=== PATIENT | female | born 1965 | race Caucasian/White ===

== ENCOUNTER 2020-10-13 08:59 | Outpatient (REF) | payer OTHER, SELFPAY ==
[2020-10-13 10:16] LABS: MANUAL DIFF FLAG NO
[2020-10-13 10:21] LABS: Basophils Percent Auto 0.4 % (0-2); Eosinophils Absolute Auto 0.1 X10*3/uL (0.0-0.4); Eosinophils Percent Auto 1.9 % (0-4); Hematocrit 34.1 % (37-47); Hemoglobin 11.1 g/dl (12.0-16.0); Imm Gran Abs Auto 0.02 X10*3/uL (0.00-0.03); Imm Gran Pct Auto 0.4 % (0.0-0.4); Lymphocytes Absolute Auto 2.6 X10*3/uL (1.2-4.9); Lymphocytes Percent Auto 46.2 % (20-40); Mean Corpuscular HGB Conc 32.6 g/dl (31.0-35.0); Mean Corpuscular Hemoglobin 31.4 pg (27.0-33.0); Mean Corpuscular Volume 96.3 fL (80-98); Mean Platelet Volume 9.8 fL (9.4-12.3); Monocytes Absolute Auto 0.5 X10*3/uL (0.1-1.2); Neutrophils Absolute Auto 2.4 X10*3/uL (2.0-8.3); Neutrophils Percent Auto 42.1 % (45-73); Platelet Count 298 X10*3/uL (160-400); Red Blood Count 3.54 X10*6/uL (4.20-5.50); Red Cell Distribution Width 11.7 % (11.0-16.0); White Blood Count 5.7 X10*3/uL (4.8-10.8)
[2020-10-13 10:47] LABS: Alanine Aminotransferase 30 U/L (0-31); Albumin Level 4.2 g/dL (3.5-5.0); Alkaline Phosphatase 63 U/L (39-117); Anion Gap 12 (12-20); Aspartate Amino Transferase 19 U/L (5-31); Bilirubin Total 0.5 mg/dL (0.0-1.0); Blood Urea Nitrogen 10 mg/dL (9-16); Carbon Dioxide 27 mmol/L (22-29); Chloride 103 mmol/L (96-108); Cholesterol 228 mg/dL; Estimated Glomerular Filt Rate > 60; Glucose Fasting 103 mg/dL (60-99); HDL Cholesterol 57 mg/dL; LDL Cholesterol Calculated 147 mg/dl; Potassium 4.3 mmol/L (3.3-5.1); Sodium 138 mmol/L (135-145); Total Protein 7.5 g/dL (6.5-8.0); Triglycerides 121 mg/dL
== END 2020-10-13 09:00 | disposition home or self-care (01) ==
LOC: HO.LAB 08:59
PROVIDERS: PCP Internal Medicine; Visit Provider Internal Medicine
DX: E78.5 Hyperlipidemia, unspecified (principal); E66.3 Overweight; D64.9 Anemia, unspecified
CPT/HCPCS: 36415; 80053; 80061; 85025

== ENCOUNTER 2021-02-01 15:04 | Outpatient (REF) | payer OTHER, SELFPAY ==
--- NOTE | ~2021-02-01 | MM_ITS ---
EXAMINATION: MM SCREENING DIGITAL BREAST TOMOSYNTHESIS, BILATERAL CLINICAL INFORMATION: Screening. Asymptomatic. The lifetime risk of breast cancer based on the Tyrer-Cuzick Model is 4%. COMPARISON: Mammography: 01/03/2020, 12/28/2018; outside exams 11/21/2017, 11/19/2016 ([facility]) TECHNIQUE: Digital breast tomosynthesis is performed in both the craniocaudal and mediolateral oblique views along with computer-aided detection (CAD). Synthesized 2D images are generated from the tomosynthesis. FINDINGS: The breasts are heterogeneously dense, which may obscure small masses (ACR BI-RADS breast composition Category c). There are no significant masses, abnormal calcifications, or other abnormalities. Parenchymal pattern is similar to prior studies. MM/MM tomosynthesis screening BI IMPRESSION: No mammographic evidence of malignancy. ASSESSMENT: BI-RADS 1: Negative RECOMMENDATION: Routine annual mammography screening. This patient's information was entered into a reminder system with a target due date for their next mammogram.
== END 2021-02-01 15:05 | disposition home or self-care (01) ==
LOC: HO.MAMMO 15:04
PROVIDERS: PCP Internal Medicine; Visit Provider Physician Assistant
DX: Z12.31 Encounter for screening mammogram for malignant neoplasm of breast (principal)
CPT/HCPCS: 77063; 77067

== ENCOUNTER 2021-10-17 08:31 | Outpatient (REF) | payer OTHER, SELFPAY ==
[2021-10-17 10:25] LABS: MANUAL DIFF FLAG NO
[2021-10-17 10:32] LABS: Basophils Percent Auto 0.3 % (0-2); Eosinophils Absolute Auto 0.1 X10*3/uL (0.0-0.4); Eosinophils Percent Auto 2.1 % (0-4); Hematocrit 34.8 % (37.0-47.0); Hemoglobin 11.3 g/dl (12.0-16.0); Imm Gran Abs Auto 0.01 X10*3/uL (0.00-0.03); Imm Gran Pct Auto 0.2 % (0.0-0.4); Lymphocytes Absolute Auto 2.9 X10*3/uL (1.2-4.9); Lymphocytes Percent Auto 50.3 % (20-40); Mean Corpuscular HGB Conc 32.5 g/dl (31.0-35.0); Mean Corpuscular Hemoglobin 31.5 pg (27.0-33.0); Mean Corpuscular Volume 96.9 fL (80.0-98.0); Monocytes Absolute Auto 0.5 X10*3/uL (0.1-1.2); Monocytes Percent Auto 8.4 % (2-11); Neutrophils Absolute Auto 2.3 x10*3/uL (2.0-8.3); Neutrophils Percent Auto 38.7 % (45-73); Platelet Count 331 X10*3/uL (160-400); Red Blood Count 3.59 X10*6/uL (4.20-5.50); Red Cell Distribution Width 11.9 % (11.0-16.0); White Blood Count 5.8 X10*3/uL (4.8-10.8)
[2021-10-17 10:42] LABS: Alanine Aminotransferase 31 U/L (0-31); Albumin Level 4.2 g/dL (3.5-5.0); Alkaline Phosphatase 60 U/L (39-117); Anion Gap 12 (12-20); Aspartate Amino Transferase 20 U/L (5-31); Bilirubin Total 0.5 mg/dL (0.0-1.0); Blood Urea Nitrogen 17 mg/dL (9-16); Calcium 8.9 mg/dL (8.4-10.2); Carbon Dioxide 28 mmol/L (22-29); Chloride 103 mmol/L (96-108); Cholesterol 244 mg/dL; Estimated Glomerular Filt Rate > 60; Glucose Fasting 108 mg/dL (60-99); HDL Cholesterol 59 mg/dL; Iron 96 mcg/dL (30-160); LDL Cholesterol Calculated 162 mg/dl; Percent Iron Saturation 36 % (15-50); Potassium 4.3 mmol/L (3.3-5.1); Sodium 139 mmol/L (135-145); Total Iron Binding Capacity 266 mcg/dL (228-428); Total Protein 7.7 g/dL (6.5-8.0); Triglycerides 118 mg/dL; Unsaturated Iron Binding 170 ug/dL
== END 2021-10-17 08:32 | disposition home or self-care (01) ==
LOC: HO.10HDL 08:31
PROVIDERS: Visit Provider Internal Medicine
DX: Z00.00 Encounter for general adult medical examination without abnormal findings (principal); D64.9 Anemia, unspecified; E78.5 Hyperlipidemia, unspecified
CPT/HCPCS: 36415; 80053; 80061; 83540; 85025

== ENCOUNTER 2021-10-23 08:34 | Outpatient (REF) | payer OTHER, SELFPAY ==
--- NOTE | ~2021-10-23 | MM_ITS ---
EXAMINATION: BONE DENSITOMETRY CLINICAL INDICATION: Osteopenia. COMPARISON: Baseline BD dated 01/19/2019. TECHNIQUE: Using a [employer] DXA System (software version: 13.1) manufactured by [employer], dual-energy x-ray absorptiometry was performed of the lumbar spine and left hip. The images are of good technical quality. Summary results are attached. FINDINGS: AP SPINE L1-L4: Current: BMD 1.191 g/cm2, Z-score 1.2, T-score 0.1, normal, 4.0% decrease from baseline (<5% change is not significant). Baseline: BMD 1.241 g/cm2. LEFT FEMUR, NECK: Current: BMD 0.852 g/cm2, Z-score -0.1, T-score -1.3, osteopenia. Baseline: BMD 0.843 g/cm2. LEFT FEMUR, TOTAL: Current: BMD 1.074 g/cm2, Z-score 1.4, T-score 0.5, normal, 1.0% decrease from baseline (<5% change is not significant). Baseline: BMD 1.085 g/cm2. IDENTIFIED RISK FACTORS: Menopause. HISTORY OF FRACTURE: None listed. MEDICATIONS: Calcium or multivitamin. Vitamin D. MM/XR DEXA axial skeleton IMPRESSION: 1. DIAGNOSIS: Osteopenia based on the lowest T-score value of -1.3 in the femoral neck applying World Health Organization criteria. 2. 10-YEAR FRACTURE RISK PREDICTION, FRAX: Major osteoporotic fracture (clinical spine, forearm, hip or shoulder) 3.8%. Hip fracture 0.3%. 3. Treatment Recommendations: NOF guidelines recommend consideration for treatment in postmenopausal women and men age 50 and older presenting with the following: -A hip or vertebral (clinical or morphometric) fracture. -T-score less than or equal to -2.5 at the femoral neck or spine after appropriate evaluation to exclude secondary causes. -Low bone mass at the hip or spine and a 10-year fracture probability by FRAX of greater than or equal to 3% for hip fracture or greater than or equal to 20% for major osteoporotic fracture based on the [place] adapted WHO algorithm. 4. Other Recommendations: All treatment decisions require clinical judgment and consideration of individual patient factors, including patient preferences, comorbidities, previous drug use, risk factors not captured in the FRAX model (e.g. frailty, falls, vitamin D deficiency, increased bone turnover, interval significant decline in bone density) and possible under or overestimation of fracture risk by FRAX. Additional medical evaluation for secondary cause of low bone mineral density may be appropriate. FUTURE SCAN RECOMMENDATION: People with diagnosed cases of osteoporosis or at high risk for fracture should have regular bone mineral density tests. For patients eligible for Medicare, routine testing is allowed once every 2 years. The testing frequency can be increased to one year for patients who have rapidly progressing disease, those who are receiving or discontinuing medical therapy to restore bone mass, or have additional risk factors.
== END 2021-10-23 08:35 | disposition home or self-care (01) ==
LOC: HO.MAMMO 08:34
PROVIDERS: Visit Provider Internal Medicine
DX: Z13.820 Encounter for screening for osteoporosis (principal); M85.80 Other specified disorders of bone density and structure, unspecified site; Z78.0 Asymptomatic menopausal state
CPT/HCPCS: 77080

== ENCOUNTER 2021-11-14 09:14 | Outpatient (REF) | payer OTHER, SELFPAY ==
--- NOTE | ~2021-11-14 | XR_ITS ---
EXAMINATION: XR HAND, RIGHT CLINICAL INFORMATION: Pain in right hand. COMPARISON: Right fingers 11/21/2014. TECHNIQUE: PA, lateral, and oblique views of the right hand. FINDINGS: There is a fusion of DIP joint second digit with the cancellous screw. There is loss of PIP joints second digit and PIP and DIP joints 3rd-5th digits with mild flexion deformities of DIP joints third through fifth digit. No visible acute fracture, dislocation or subluxation seen. No bony erosive changes. The soft tissues are normal. XR/XR hand RT min 3V IMPRESSION: Fusion DIP joint second digit, unchanged since 2014. There are degenerative osteoarthritic changes PIP and DIP joints third through fifth digit. No visible acute fracture or dislocation seen.
== END 2021-11-14 09:15 | disposition home or self-care (01) ==
LOC: HO.HOSX 09:14
PROVIDERS: Visit Provider Orthopaedic Surgery
DX: R20.0 Anesthesia of skin (principal); R20.2 Paresthesia of skin; M19.041 Primary osteoarthritis, right hand; M19.042 Primary osteoarthritis, left hand
CPT/HCPCS: 73130; 99202

== ENCOUNTER 2022-01-08 17:16 | Emergency (ER) | payer OTHER, SELFPAY ==
[2022-01-08 18:27] VITALS: BP 148/85; PULSE 94; RESP 18; TEMP 36.6; O2SAT 97; BMI 26.6
== END 2022-01-08 22:21 | disposition left against medical advice (07) ==
PROVIDERS: Emergency Provider Emergency Medicine; PCP Internal Medicine
DX: R21 Rash and other nonspecific skin eruption (principal)
CPT/HCPCS: 99281

== ENCOUNTER 2022-02-04 15:40 | Outpatient (REF) | payer OTHER, SELFPAY ==
--- NOTE | ~2022-02-04 | MM_ITS ---
EXAMINATION: MM SCREENING DIGITAL BREAST TOMOSYNTHESIS, BILATERAL CLINICAL INFORMATION: Screening. Asymptomatic. The lifetime risk of breast cancer based on the Tyrer-Cuzick Model is 5%. COMPARISON: Mammography: 02/01/2021, 12/24/2019, 12/28/2018 TECHNIQUE: Digital breast tomosynthesis is performed in both the craniocaudal and mediolateral oblique views along with computer-aided detection (CAD). Synthesized 2D images are generated from the tomosynthesis. FINDINGS: The breasts are heterogeneously dense, which may obscure small masses (ACR BI-RADS breast composition Category c). There are no significant masses, abnormal calcifications, or other abnormalities. Parenchymal pattern is similar to prior studies and there is no developing density or architectural abnormality. MM/MM tomosynthesis screening BI IMPRESSION: No mammographic evidence of malignancy. ASSESSMENT: BI-RADS 1: Negative RECOMMENDATION: Routine annual mammography screening. This patient's information was entered into a reminder system with a target due date for their next mammogram.
== END 2022-02-04 15:41 | disposition home or self-care (01) ==
LOC: HO.MAMMO 15:40
PROVIDERS: PCP Internal Medicine; Visit Provider Internal Medicine
DX: Z12.31 Encounter for screening mammogram for malignant neoplasm of breast (principal)
CPT/HCPCS: 77063; 77067

== ENCOUNTER 2022-10-23 13:11 | Outpatient (REF) | payer OTHER, SELFPAY ==
--- NOTE | ~2022-10-23 | XR_ITS ---
EXAMINATION: XR KNEE LEFT XR KNEE RIGHT CLINICAL INFORMATION: Chronic bilateral knee pain COMPARISON: Radiographs of left knee from 12/06/2019 TECHNIQUE: Left knee, 2 views Right knee, 2 views FINDINGS: Right knee: Bones, joints and soft tissues are normal. No knee joint effusion or intra-articular osteochondral body. Left knee: Bones, joints and soft tissues are normal. No knee joint effusion or intra-articular osteochondral body. XR/XR knee LT 2V IMPRESSION: No significant radiographic findings at either knee.
--- NOTE | ~2022-10-23 | XR_ITS ---
EXAMINATION: XR KNEE LEFT XR KNEE RIGHT CLINICAL INFORMATION: Chronic bilateral knee pain COMPARISON: Radiographs of left knee from 12/06/2019 TECHNIQUE: Left knee, 2 views Right knee, 2 views FINDINGS: Right knee: Bones, joints and soft tissues are normal. No knee joint effusion or intra-articular osteochondral body. Left knee: Bones, joints and soft tissues are normal. No knee joint effusion or intra-articular osteochondral body. XR/XR knee RT 2V IMPRESSION: No significant radiographic findings at either knee.
== END 2022-10-23 13:12 | disposition home or self-care (01) ==
LOC: HO.LAB 13:11
PROVIDERS: PCP Internal Medicine; Visit Provider Internal Medicine
DX: Z00.00 Encounter for general adult medical examination without abnormal findings (principal); E78.5 Hyperlipidemia, unspecified; M25.561 Pain in right knee; M25.562 Pain in left knee
CPT/HCPCS: 36415; 73560; 80053; 80061

== ENCOUNTER 2023-02-13 15:34 | Outpatient (REF) | payer OTHER, SELFPAY | END 2023-02-13 15:35 | disposition home or self-care (01) | LOC: HO.MAMMO 15:34 | PROVIDERS: PCP Internal Medicine; Visit Provider Internal Medicine | DX: Z12.31 Encounter for screening mammogram for malignant neoplasm of breast (principal) | CPT/HCPCS: 77063; 77067 ==

== ENCOUNTER → 2023-02-13 16:00 | Outpatient (BNV) | payer OTHER, SELFPAY | PROVIDERS: PCP Internal Medicine; Visit Provider Radiology Diagnostic Radiology | DX: Z12.31 Encounter for screening mammogram for malignant neoplasm of breast (principal) | CPT/HCPCS: 77063; 77067 ==

== ENCOUNTER 2023-10-28 12:30 | Outpatient (AMB) | payer OTHER, SELFPAY ==
--- NOTE | 2023-10-28 12:39 | A.OFFPC_ITS ---
Vital Signs 10/28/23 12:40 Height 4 ft 11 in Weight 128 lb 2 oz BMI 25.9 BP 132/68 Blood Pressure Location Lt brachial Position Sitting Pulse 90 Pulse Source Pulse Oximeter Pulse Oximetry (%) 98 Oxygen Delivery Method Room Air Intake Visit Reasons: Annual Exam Log Preparer Required: No Accompanied by: Self / Same As Patient Allergies trazodone Adverse Reaction (Intermediate, Verified 10/28/23 13:27) dry nose ENVIROMENTAL Allergy (Intermediate, Uncoded 10/28/23 13:27) ITCHY EYES Medication List - Last Reconciled 10/28/23 by Miranda Marsh MD hydrocortisone 2.5% 1 appl topical BID PRN 30 days trazodone 50 mg PO BEDTIME PRN 90 days Tobacco use date assessed: 10/23/22 Dental Screening Dental Screen Date: 10/23/22 HPI HPI Comments History of Present Illness Details This is a 58-year-old female comes for her physical exam. Mammogram done 2022 was normal. Pap smear done 2017 and will be referred to another Pap smear. As per patient last colonoscopy was over 10 years ago. DEXA scan done 2021 and will be repeated this year. No chest pain or shortness on breath. She complains of neck pain and left shoulder pain that has been present for few months. No previous trauma. Has insomnia but trazodone cause dry nose and m outh. Will start her on mirtazapine. [facility] Medical History (Updated 10/28/23 @ 13:20 by Miranda Marsh MD) Normocytic anemia Dyslipidemia Headache Recurrent tonsillitis Overweight Surgical History History of surgery History of tubal ligation History of breast surgery Family History Father Lung cancer Smoker Mother Myocardial infarction Daughter No problems noted. Son No problems noted. 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 1. Little interest or pleasure in doing things: not at all 2. Feeling down, depressed, or hopeless: not at all 3. Trouble falling or staying asleep, or sleeping too much: not at all 4. Feeling tired or having little energy: not at all 5. Poor appetite or overeating: not at all 6. Feeling bad about yourself - or that you are a failure or have let yourself or your family down: not at all 7. Trouble concentrating on things, such as reading the newspaper or watching television: not at all 8. Moving or speaking so slowly that other people could have noticed. Or the opposite - being so fidgety or restless that you have been moving around a lot more than usual: not at all 9. Thoughts that you would be better off or of hurting yourself in some way: not at all Total score: 0 Depression Screening Interpretation: Negative Depression Screening Done: Yes 54543 - PHQ-9 Billing: Yes Source: Developed by Drs. Alireza Engel, Marian James, Damon Ann and colleagues, with an educational dulce maria from [employer]. Thrive Questionnaire Date Thrive assessed: 10/28/23 I am a: Patient What is your living situation today?: I have a steady place to live Within the past 12 months, did the food you bought not last and you didn't have the money to get more?: Never true Within the past 12 months, did you worry whether your food would run out before you got money to buy more?: Never true Do you have trouble paying for medicines?: No Do you have trouble getting transportation to medical appointments?: No Do you have trouble paying your heating and electricity bill?: No Do you have trouble taking care of your child, family member or friend?: No Do you have trouble with day-to-day activities such as bathing, preparing meals, shopping, managing finances, etc.?: No Are you currently unemployed and looking for a job?: No Are you interested in more education?: No Please select the resources that you would like help with: None Currently or been in a relationship where the following occur: No concerns reported THRIVE Score: 0 AUDIT C Alcohol Use Questionnaire (AUDIT-C) 1. How often do you have a drink containing alcohol?: Never 3. How often do you have six or more drinks on one occasion?: Never Total Score: 0 JOSE-7 AMB Questionnaire JOSE-7 Date JOSE - 7 assessed: 10/28/23 Feeling nervous, anxious, or on edge: 3 = Nearly every day Not being able to stop or control worryin = Nearly every day Worrying too much about different things: 3 = Nearly every day Trouble relaxin = Nearly every day Being so restless that it is hard to sit still: 1 = Several days Becoming easily annoyed or irritable: 3 = Nearly every day Feeling afraid as if something awful might happen: 2 = More than half the days Total JOSE-7 score (0-4 normal; 5-9 mild; 10-14 moderate; 15-21 severe): 18 Source: Developed by Drs. Alireza Engel, Marian James, Damon Ann and colleagues, with an educational dulce maria from [employer]. JOSE-7 Assessment Billing JOSE-7 Assessment Tool: JOSE-7 Assessment 45694 Review of Systems Const All systems reviewed & are unremarkable except as noted in HPI and below ENT Reports neck pain Card Denies chest pain at rest, Denies chest pain with activity, Denies edema, Denies irregular heart rhythm, Denies claudication, Denies dyspnea, Denies dyspnea on exertion, Denies orthopnea, Denies paroxysmal nocturnal dyspnea and Denies slow heart rate Resp Denies cough, Denies dyspnea and Denies dyspnea on exertion GI Denies abdominal pain, Denies change in bowel habits, Denies excessive flatus, Denies nausea and Denies vomiting Denies urinary incontinence, Denies urinary hesitancy and Denies urinary urgency Musc Reports arthralgias and Reports neck pain Neuro Denies lack of coordination Physical exam (Primary Care) Vital Signs: Last Vital Signs Pulse 90 10/28/23 12:40 BP 132/68 10/28/23 12:40 Pulse Ox 98 10/28/23 12:40 Oxygen Delivery Method Room Air 10/28/23 12:40 BMI result Body Mass Index 25.9 Tobacco/Smoking Status: Tobacco use Status Tobacco use date assessed 10/23/22 10/28/23 12:40 Patient Tobacco Use Status Never used Tobacco 10/28/23 12:40 e-Cigarette/Vaping Use Never Used 10/28/23 12:40 PHQ-9: PHQ-9 Score PHQ-9: Total score 0 10/28/23 12:56 Depression Screening Interpretation: Negative Thrive Assessment: Date of Thrive Assessment Date Thrive assessed 10/28/23 10/28/23 12:56 Currently or been in a relationship where the following occur: No concerns reported [facility] Head: Yes normal to inspection, Yes normocephalic and Yes atraumatic Ears: external ears normal Eyes General: appearance normal, both eyes and all related structures Eyelids: Yes eyelids normal Conjunctivae: conjunctivae normal Neck Neck: Yes normal visual inspection, Yes supple and Yes tender Resp Effort & Inspection: normal respiratory effort Auscultation: clear to auscultation bilaterally Cardio Jugular venous distension: no JVD Rate: regular rate Rhythm: regular rhythm Heart sounds: S1 normal heart sound present and S2 normal heart sound present GI Inspection: Yes normal to inspection Palpation (GI): Soft to palpation and nontender Auscultation: normal bowel sounds Skin General skin exam: no rashes or lesions noted Neuro General: no focal motor deficits Extrem General: Yes full ROM Psych Appearance: grossly normal Assessment and Plan Assessment & Plan (1) Encounter for physical examination: Code(s): Z00.00 - Encounter for general adult medical examination without abnormal findings Plan: Repeat in a year. (2) Neck pain: Code(s): M54.2 - Cervicalgia Plan: X-ray ordered. Start cyclobenzaprine as needed at bedtime. (3) Left shoulder pain: Code(s): M25.512 - Pain in left shoulder Plan: X-ray ordered. Start cyclobenzaprine as needed. (4) Insomnia: Code(s): G47.00 - Insomnia, unspecified Plan: Discontinue trazodone. Start mirtazapine. Orders: Orders XR DEXA axial skeleton Today N95.9 - Unspecified menopausal and perimenopausal disorder Complete Blood Count Auto Diff Today D64.9 - Anemia, unspecified XR cervical spine 2V Today M54.2 - Cervicalgia Lipid Panel Today E78.5 - Hyperlipidemia, unspecified, Z00.00 - Encounter for general adult medical examination without abnormal findings Comprehensive [place]. Panel Fast Today Z00.00 - Encounter for general adult medical examination without abnormal findings IRON PROFILE Today D64.9 - Anemia, unspecified Vitamin D 25-OH Total Today E55.9 - Vitamin D deficiency, unspecified, M85.80 - Other specified disorders of bone density and structure, unspecified site MM screening mammo BI Today M85.80 - Other specified disorders of bone density and structure, unspecified site, Z12.31 - Encounter for screening mammogram for malignant neoplasm of breast XR shoulder LT 1V Today M25.512 - Pain in left shoulder Referrals Open Access Screening Colonoscopy Referral Z12.11 - Encounter for screening for malignant neoplasm of colon RETAIL TRAINING MANAGER Referral Z12.4 - Encounter for screening for malignant neoplasm of cervix Medications: New mirtazapine 15 mg PO BEDTIME 30 days 30 tabs 1RF G47.00 - Insomnia, unspecified cyclobenzaprine 5 mg PO BEDTIME 30 days PRN 30 tabs 0RF muscle spasm Discontinued trazodone Discontinued Reason: Patient Completed Course 50 mg PO BEDTIME 90 days PRN 90 tabs 1RF sleep Coding Level of Care Code Est Pt Level 3 (50837) Est Pt Prev Care 40-64y(42030) Diagnoses Encounter for physical examination Z00.00 Neck pain M54.2 Left shoulder pain M25.512 Insomnia G47.00 Additional Codes JOSE-7 Assessment Billing - JOSE-7 Assessment Tool: JOSE-7 Assessment 26207 ([id number]) Time Spent (min) 33
[2023-10-28 12:40] VITALS: BP 132/68; PULSE 90; O2SAT 98; BMI 25.9
== END 2023-10-28 13:21 | disposition home or self-care (01) ==
PROVIDERS: PCP Internal Medicine; Visit Provider Internal Medicine
DX: Z00.00 Encounter for general adult medical examination without abnormal findings (principal); M54.2 Cervicalgia; M25.512 Pain in left shoulder; G47.00 Insomnia, unspecified
CPT/HCPCS: 99213; 99396

== ENCOUNTER 2023-10-28 13:33 | Outpatient (REF) | payer OTHER, SELFPAY ==
--- NOTE | ~2023-10-28 | XR_ITS ---
EXAMINATION: XR CERVICAL SPINE XR LEFT SHOULDER CLINICAL INFORMATION: Neck pain, left shoulder pain. COMPARISON: None available. TECHNIQUE: 4 views cervical spine, 4 views left shoulder. FINDINGS: CERVICAL SPINE: Straightening of the normal cervical lordosis. Multilevel cervical spondylosis with moderate loss of disc space height and hypertrophic change at C5-C6. Minimal anterolisthesis of C4 on C5. Minimal anterolisthesis of C6 on C7. LEFT SHOULDER: Moderate degenerative changes in the acromioclavicular joint. Glenohumeral alignment is preserved. No abnormal soft tissue calcifications appreciated adjacent to the humeral head. XR/XR cervical spine 2V IMPRESSION: 1. Multilevel cervical spondylosis most notable at C5-C6. 2. Moderate degenerative changes left acromioclavicular joint.
--- NOTE | ~2023-10-28 | XR_ITS ---
EXAMINATION: XR CERVICAL SPINE XR LEFT SHOULDER CLINICAL INFORMATION: Neck pain, left shoulder pain. COMPARISON: None available. TECHNIQUE: 4 views cervical spine, 4 views left shoulder. FINDINGS: CERVICAL SPINE: Straightening of the normal cervical lordosis. Multilevel cervical spondylosis with moderate loss of disc space height and hypertrophic change at C5-C6. Minimal anterolisthesis of C4 on C5. Minimal anterolisthesis of C6 on C7. LEFT SHOULDER: Moderate degenerative changes in the acromioclavicular joint. Glenohumeral alignment is preserved. No abnormal soft tissue calcifications appreciated adjacent to the humeral head. XR/XR shoulder LT min 2V IMPRESSION: 1. Multilevel cervical spondylosis most notable at C5-C6. 2. Moderate degenerative changes left acromioclavicular joint.
[2023-10-28 13:51] LABS: MANUAL DIFF FLAG NO
[2023-10-28 13:59] LABS: Basophils Percent Auto 0.4 % (0-2); Eosinophils Absolute Auto 0.1 X10*3/uL (0.0-0.4); Eosinophils Percent Auto 1.1 % (0-4); Hematocrit 35.2 % (37.0-47.0); Hemoglobin 11.5 g/dl (12.0-16.0); Imm Gran Abs Auto 0.01 X10*3/uL (0.00-0.03); Imm Gran Pct Auto 0.2 % (0.0-0.4); Lymphocytes Percent Auto 43.6 % (20-40); Mean Corpuscular HGB Conc 32.7 g/dl (31.0-35.0); Mean Corpuscular Hemoglobin 31.3 pg (27.0-33.0); Mean Corpuscular Volume 95.9 fL (80.0-98.0); Mean Platelet Volume 9.2 fL (9.4-12.3); Monocytes Absolute Auto 0.4 X10*3/uL (0.1-1.2); Monocytes Percent Auto 8.7 % (2-11); Neutrophils Absolute Auto 2.1 x10*3/uL (2.0-8.3); Platelet Count 302 X10*3/uL (160-400); Red Blood Count 3.67 X10*6/uL (4.20-5.50); Red Cell Distribution Width 11.9 % (11.0-16.0); White Blood Count 4.6 X10*3/uL (4.8-10.8)
[2023-10-28 14:32] LABS: Alanine Aminotransferase 25 U/L (0-31); Albumin Level 4.4 g/dL (3.5-5.0); Alkaline Phosphatase 59 U/L (39-117); Anion Gap 14 (12-20); Aspartate Amino Transferase 18 U/L (5-31); Bilirubin Total 0.6 mg/dL (0.0-1.0); Blood Urea Nitrogen 11 mg/dL (9-16); Calcium 9.5 mg/dL (8.4-10.2); Carbon Dioxide 26 mmol/L (22-29); Chloride 104 mmol/L (96-108); Cholesterol 275 mg/dL (<200); Estimated Glomerular Filt Rate > 60; Glucose Fasting 97 mg/dL (60-99); HDL Cholesterol 57 mg/dL (>40); Iron 92 mcg/dL (30-160); LDL Cholesterol Calculated 195 mg/dL (<100); Percent Iron Saturation 36 % (15-50); Potassium 4.2 mmol/L (3.3-5.1); Sodium 140 mmol/L (135-145); Total Iron Binding Capacity 254 mcg/dL (228-428); Triglycerides 119 mg/dL (<150); Unsaturated Iron Binding 162 ug/dL
[2023-10-28 14:46] LABS: Vitamin D 25-OH Total 34.8 ng/mL (>30)
== END 2023-10-28 13:34 | disposition home or self-care (01) ==
LOC: HO.LAB 13:33
PROVIDERS: PCP Internal Medicine; Visit Provider Internal Medicine
DX: Z00.00 Encounter for general adult medical examination without abnormal findings (principal); D64.9 Anemia, unspecified; E55.9 Vitamin D deficiency, unspecified; M85.80 Other specified disorders of bone density and structure, unspecified site; E78.5 Hyperlipidemia, unspecified; M54.2 Cervicalgia
CPT/HCPCS: 36415; 72040; 73030; 80053; 80061; 82306; 83540; 85025

== ENCOUNTER 2023-12-03 14:18 | Outpatient (REF) | payer OTHER, SELFPAY ==
[2023-12-05 17:23] LABS: HPV mRNA E6/E7 Not Detected (Not Detected)
== END 2023-12-03 14:19 | disposition home or self-care (01) ==
LOC: HO.LNP 14:18
PROVIDERS: PCP Internal Medicine; Visit Provider Advanced Practice Midwife
DX: Z01.419 Encounter for gynecological examination (general) (routine) without abnormal findings (principal); Z11.51 Encounter for screening for human papillomavirus (HPV)
CPT/HCPCS: 87624; 88175; 99396

== ENCOUNTER 2023-12-03 14:18 | Outpatient (AMB) | payer OTHER, SELFPAY ==
--- NOTE | 2023-12-03 15:09 | A.OFFVIS_ITS ---
Vital Signs 12/03/23 15:10 Height 4 ft 11 in Weight 128 lb BMI 25.9 BP 130/70 Intake Visit Reasons: New Patient Annual Security Assessor Required: No Security Assessor Services: Security Assessor Present Information Interpreted: clinical only Yard Supervisor: Yard Supervisor Present Allergies trazodone Adverse Reaction (Intermediate, Verified 12/03/23 15:13) dry nose ENVIROMENTAL Allergy (Intermediate, Uncoded 12/03/23 15:13) ITCHY EYES Medication List - Last Reconciled 12/03/23 by Jailyn Bunn CNM cyclobenzaprine 5 mg PO BEDTIME PRN 30 days hydrocortisone 2.5% 1 appl topical BID PRN 30 days mirtazapine 15 mg PO BEDTIME 30 days Post menopausal: Yes (2008) HPI HPI New Patient Annual: Details: Here for her mate first annual visit she is not having any issues at all she is postmenopausal she has not had a period in 9 years she does get hot flashes she does note vaginal dryness. She has not been sexually active for the last 4 years by choice and she is not what all about any infection. She has a mammogram appointment next month she sees her primary care provider and is working on cholesterol. She has a little bit decreased bone density and is taking all of her vitamins and calcium. 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 [facility] Medical History Normocytic anemia Dyslipidemia Headache Recurrent tonsillitis Overweight Surgical History History of surgery History of tubal ligation History of breast surgery Family History Father Lung cancer Smoker Mother Myocardial infarction Daughter No problems noted. Son No problems noted. 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 Cognitive needs: No Hearing needs: No Vision needs: Yes Female Reproductive History Menstrual Age of Menarche: 11 Duration of menses: <3 days control method: permanent sterilization Total pregnancies: 2 Full term: 2 Date of last pap smear: 05/21/19 (neg.per patient) History of abnormal pap smear: No Date of Mammogram: 02/13/23 (negative) Physical Exam Vital Signs: Last Vital Signs BP 130/70 12/03/23 15:10 BMI result Body Mass Index 25.9 Const General: healthy appearing, comfortable, no acute distress, well developed and alert Nutritional Appearance: average body habitus Orientation/consciousness: patient oriented x3 Limitations: no limitations HEENT Head: Yes normocephalic Neck Neck: Yes normal visual inspection Chest Chest palpation & inspection: normal inspection of the chest Breast/axilla inspection: normal inspection of the breasts and normal inspection of the axillae Breast/axilla palpation: normal palpation of the breasts and normal palpation of the axillae Resp Effort & Inspection: normal respiratory effort GI Inspection: Yes normal to inspection, No Abdominal wall edema and No distended Palpation (GI): Soft to palpation and nontender General: Yes bladder normal to palpation External Female Exam: normal external appearance and normal appearance of the urethra Speculum Exam - Vagina: normal appearance of the vagina, normal palpation and normal vaginal discharge Speculum Exam - Cervix: normal appearance of the cervix, normal palpation and nontender Bimanual exam- vagina & uterus: normal bimanual exam, normal palpation, uterine size normal, bladder normal to palpation, consistency normal, normal palpation, uterine mobility normal, uterine shape normal, No Cervical tenderness present, non-tender and no cervical motion tenderness Bimanual Exam- Adnexa, other: normal adnexae, no masses, normal and No adnexal tenderness Neuro General: patient oriented x3 Assessment & Plan Assessment & Plan (1) Screening for cervical cancer: Code(s): Z12.4 - Encounter for screening for malignant neoplasm of cervix Category: Medical (2) Well woman exam with routine gynecological exam: Code(s): Z01.419 - Encounter for gynecological examination (general) (routine) without abnormal findings Category: Medical (3) Post-menopausal: Code(s): Z78.0 - Asymptomatic menopausal state Category: Medical Plan -----Discussed in this visit the following: healthy balanced diet, regular and consistent exercise, getting recommended health screens, doing the best she can for her particular health concerns, kegel exercises, pap smear screening and followup recommendations, mammography screening and SBE, normal changes in cycles in her life stage--- . Discussed the normal menopausal changes which she is aware of. Discussed diet and that she is taking her extra vitamins and taking care of her bones.. She is keeping up with her primary care and she also has a doctor for her arthritis as well. She has a mammogram coming up she does not have any other health concerns and she has decided not to be sexually active anymore so she has no real concerns about the vaginal dryness.. Pap smear done last evidence of a Pap that I could find was in 2018 with negative HPV though I could not find the actual Pap. We will see her in 1 year. Orders: Orders PAP + HPV E6/E7 rfx 18/45 Today Z01.419 - Encounter for gynecological examination (general) (routine) without abnormal findings Coding Level of Care Code Est Pt Prev Care 40-64y(44885) Diagnoses Screening for cervical cancer Z12.4 Well woman exam with routine gynecological exam Z01.419 Post-menopausal Z78.0
[2023-12-03 15:10] VITALS: BP 130/70; BMI 25.9
== END 2023-12-03 15:42 | disposition home or self-care (01) ==
LOC: HO.HWSM 14:18
PROVIDERS: PCP Internal Medicine; Visit Provider Advanced Practice Midwife
DX: Z12.4 Encounter for screening for malignant neoplasm of cervix (principal); Z01.419 Encounter for gynecological examination (general) (routine) without abnormal findings; Z78.0 Asymptomatic menopausal state
CPT/HCPCS: 99396

== ENCOUNTER 2024-02-24 13:19 | Outpatient (REF) | payer OTHER, SELFPAY ==
--- NOTE | ~2024-02-24 | MM_ITS ---
EXAMINATION: BONE DENSITOMETRY CLINICAL INDICATION: Unspecified menopausal and perimenopausal disorder. COMPARISON: Previous BD dated 10/23/2021 and baseline BD dated 01/19/2019. TECHNIQUE: Using a [employer] DXA System (software version: 13.1) manufactured by [employer], dual-energy x-ray absorptiometry was performed of the lumbar spine and left hip. The images are of good technical quality. Summary results are attached. FINDINGS: AP SPINE L1-L4: Current: BMD 1.234 g/cm2, Z-score 1.8, T-score 0.4, normal, 3.6% increase from previous, 0.6% decrease from baseline (<5% change is not significant). Prior: BMD 1.191 g/cm2. Baseline: BMD 1.241 g/cm2. LEFT FEMUR, NECK: Current: BMD 0.903 g/cm2, Z-score 0.4, T-score -1.0, normal. Prior: BMD 0.852 g/cm2. Baseline: BMD 0.843 g/cm2. LEFT FEMUR, TOTAL: Current: BMD 1.089 g/cm2, Z-score 1.7, T-score 0.6, normal, 1.4% increase from previous, 0.4% increase from baseline (<5% change is not significant). Prior: BMD 1.074 g/cm2. Baseline: BMD 1.085 g/cm2. IDENTIFIED RISK FACTORS: Menopause. HISTORY OF FRACTURE: None listed. MEDICATIONS: Calcium supplement and/or multivitamin. Vitamin D. MM/XR DEXA axial skeleton IMPRESSION: 1. DIAGNOSIS: Normal bone density based on the lowest T-score value of -1.0 in the femoral neck applying World Health Organization criteria. 2. 10-YEAR FRACTURE RISK PREDICTION, FRAX: According to the guidelines, FRAX calculation should only be performed on patients in the osteopenia bone density category. Therefore, FRAX was not performed on this patient. 3. Treatment Recommendations: NOF guidelines recommend consideration for treatment in postmenopausal women and men age 50 and older presenting with the following: -A hip or vertebral (clinical or morphometric) fracture. -T-score less than or equal to -2.5 at the femoral neck or spine after appropriate evaluation to exclude secondary causes. -Low bone mass at the hip or spine and a 10-year fracture probability by FRAX of greater than or equal to 3% for hip fracture or greater than or equal to 20% for major osteoporotic fracture based on the [place] adapted WHO algorithm. 4. Other Recommendations: All treatment decisions require clinical judgment and consideration of individual patient factors, including patient preferences, comorbidities, previous drug use, risk factors not captured in the FRAX model (e.g. frailty, falls, vitamin D deficiency, increased bone turnover, interval significant decline in bone density) and possible under or overestimation of fracture risk by FRAX. FUTURE SCAN RECOMMENDATION: People with diagnosed cases of osteoporosis or at high risk for fracture should have regular bone mineral density tests. For patients eligible for Medicare, routine testing is allowed once every 2 years. The testing frequency can be increased to one year for patients who have rapidly progressing disease, those who are receiving or discontinuing medical therapy to restore bone mass, or have additional risk factors. Electronically signed by: Juice Means MD 03/08/2024 08:10 AM JAYCEE
--- NOTE | ~2024-02-24 | MM_ITS ---
EXAMINATION: MM SCREENING DIGITAL BREAST TOMOSYNTHESIS, BILATERAL CLINICAL INFORMATION: Screening. Asymptomatic. COMPARISON: Mammography: Comparison is made with available priors TECHNIQUE: Digital breast mammography with tomosynthesis is performed in both the craniocaudal and mediolateral oblique views along with computer-aided detection (CAD). FINDINGS: The breasts are heterogeneously dense, which may obscure small masses (ACR BI-RADS breast composition Category c). There are no significant masses, abnormal calcifications, or other abnormalities. MM/MM tomosynthesis screening BI IMPRESSION: No mammographic evidence of malignancy. ASSESSMENT: BI-RADS BI-RADS 1 - Negative RECOMMENDATION: Routine annual mammography screening. 1 year F/U This examination should not preclude the clinical evaluation of a suspicious palpable abnormality. This patient's information was entered into a reminder system with a target due date for their next mammogram. Electronically signed by: Kendra Martinez DO 03/03/2024 01:52 PM JAYCEE
== END 2024-02-24 13:20 | disposition home or self-care (01) ==
LOC: HO.MAMMO 13:19
PROVIDERS: PCP Internal Medicine; Visit Provider Internal Medicine
DX: Z12.31 Encounter for screening mammogram for malignant neoplasm of breast (principal); Z13.820 Encounter for screening for osteoporosis; Z78.0 Asymptomatic menopausal state
CPT/HCPCS: 77063; 77067; 77080

== ENCOUNTER → 2024-02-24 14:15 | Outpatient (BNV) | payer OTHER, SELFPAY | PROVIDERS: PCP Internal Medicine; Visit Provider Internal Medicine | DX: Z12.31 Encounter for screening mammogram for malignant neoplasm of breast (principal) | CPT/HCPCS: 77063; 77067 ==

== ENCOUNTER 2024-05-04 15:10 | Outpatient (AMB) | payer OTHER, SELFPAY ==
[2024-05-04 15:42] VITALS: BP 136/82; BMI 26.1
--- NOTE | 2024-05-04 15:42 | A.OFFPC_ITS ---
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 Helper Language: Invoice Clerk Name: Miranda Marsh MD Information Interpreted: non-clinical & clinical Accompanied by: Self / Same As Patient Allergies mirtazapine Adverse Reaction (Intermediate, Verified 05/04/24 16:17) inadequate response trazodone Adverse Reaction (Intermediate, Verified 05/04/24 16:12) dry nose ENVIROMENTAL Allergy (Intermediate, Uncoded 05/04/24 16:12) ITCHY EYES Medication List - Last Reconciled 05/04/24 by Miranda Marsh MD hydrocortisone 2.5% 1 appl topical BID PRN 30 days Tobacco use date assessed: 05/04/24 Dental Screening Dental Screen Date: 05/04/24 Did you have a dental visit in the last 12 months?: Yes Did you have a dental problem in the last 6 months where you did not have access to dental care?: No Was dental information given to patient?: Patient has dentist HPI HPI Comments History of Present Illness Details The patient is a 58-year-old female presenting with insomnia. She reports difficulty sleeping despite efforts to create a comfortable sleep environment, such as a dark room and comfortable bed. The patient has experienced this sleeplessness persistently, and hasn't found relief through typical daily activities. There are concerns that her cat may disturb her, as it wakes her at around 3 AM, but she reports already being awake at that time. The patient expresses fatigue and frustration from her inability to sleep. The patient also reports side effects from Trazodone, which include dry mouth and dry nasal passages. Despite these symptoms, she has not taken more than the prescribed dosage and hasn't experienced other adverse effects. Additionally, the patient describes gastrointestinal discomfort with bloating and gas, prominently beneath the ribs, which did not resolve with [id number] remedies or dietary adjustments. [facility] Medical History Normocytic anemia Dyslipidemia Headache Recurrent tonsillitis Overweight Surgical History History of surgery History of tubal ligation History of breast surgery Family History Father Lung cancer Smoker Mother Myocardial infarction Daughter No problems noted. Son No problems noted. 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 1. Little interest or pleasure in doing things: not at all 2. Feeling down, depressed, or hopeless: not at all 3. Trouble falling or staying asleep, or sleeping too much: nearly every day 4. Feeling tired or having little energy: not at all 5. Poor appetite or overeating: not at all 6. Feeling bad about yourself - or that you are a failure or have let yourself or your family down: not at all 7. Trouble concentrating on things, such as reading the newspaper or watching television: not at all 8. Moving or speaking so slowly that other people could have noticed. Or the opposite - being so fidgety or restless that you have been moving around a lot more than usual: not at all 9. Thoughts that you would be better off or of hurting yourself in some way: not at all Total score: 3 Depression Screening Interpretation: Positive Depression Screening Follow-up: Existing condition, In treatment and Follow-up Visit Requested Depression Screening Done: Yes 70902 - PHQ-9 Billing: Yes Source: Developed by Drs. Alireza Engel, Marian James, Damon teresa nd colleagues, with an educational dulce maria from [employer]. Thrive Questionnaire Date Thrive assessed: 05/04/24 I am a: Patient What is your living situation today?: I have a steady place to live Within the past 12 months, did the food you bought not last and you didn't have the money to get more?: Never true Within the past 12 months, did you worry whether your food would run out before you got money to buy more?: Never true Do you have trouble paying for medicines?: No Do you have trouble getting transportation to medical appointments?: No Do you have trouble paying your heating and electricity bill?: No Do you have trouble taking care of your child, family member or friend?: No Do you have trouble with day-to-day activities such as bathing, preparing meals, shopping, managing finances, etc.?: No Are you currently unemployed and looking for a job?: No Are you interested in more education?: No Please select the resources that you would like help with: None Currently or been in a relationship where the following occur: No concerns reported THRIVE Score: 0 AUDIT C Alcohol Use Questionnaire (AUDIT-C) 1. How often do you have a drink containing alcohol?: Never Total Score: 0 JOSE-7 AMB Questionnaire JOSE-7 Date JOSE - 7 assessed: 05/04/24 Feeling nervous, anxious, or on edge: 0 = Not at all Not being able to stop or control worryin = Not at all Worrying too much about different things: 0 = Not at all Trouble relaxin = Not at all Being so restless that it is hard to sit still: 0 = Not at all Becoming easily annoyed or irritable: 0 = Not at all Feeling afraid as if something awful might happen: 0 = Not at all Total JOSE-7 score (0-4 normal; 5-9 mild; 10-14 moderate; 15-21 severe): 0 Source: Developed by Drs. Alireza Engel, Marian James, Damon Ann and colleagues, with an educational dulce maria from [employer]. JOSE-7 Assessment Billing JOSE-7 Assessment Tool: JOSE-7 Assessment 03957 Review of Systems Const All systems reviewed & are unremarkable except as noted in HPI and below Card Denies chest pain at rest, Denies chest pain with activity, Denies edema, Denies irregular heart rhythm, Denies claudication, Denies dyspnea, Denies dyspnea on exertion, Denies orthopnea, Denies paroxysmal nocturnal dyspnea and Denies slow heart rate Resp Denies cough, Denies dyspnea and Denies dyspnea on exertion Denies urinary incontinence, Denies urinary hesitancy and Denies urinary urgency Musc Denies atrophy, Denies deformity and Denies limited range of motion Physical exam (Primary Care) Vital Signs: Last Vital Signs BP 136/82 05/04/24 15:42 BMI result Body Mass Index 26.1 Tobacco/Smoking Status: Tobacco use Status Tobacco use date assessed 05/04/24 05/04/24 15:48 Patient Tobacco Use Status Never used Tobacco 05/04/24 15:44 e-Cigarette/Vaping Use Never Used 05/04/24 15:44 PHQ-9: PHQ-9 Score PHQ-9: Total score 3 05/04/24 16:55 Depression Screening Interpretation: Positive Depression Screening Follow-up: Existing condition, In treatment and Follow-up Visit Requested Thrive Assessment: Date of Thrive Assessment Date Thrive assessed 05/04/24 05/04/24 15:48 Currently or been in a relationship where the following occur: No concerns reported Resp Effort & Inspection: normal respiratory effort Auscultation: clear to auscultation bilaterally Cardio Jugular venous distension: no JVD Rate: regular rate Rhythm: regular rhythm Heart sounds: S1 normal heart sound present and S2 normal heart sound present Extrem General: Yes full ROM Office Procedures Flu Questionnaire Does the patient have a severe egg allergy?: No Does the patient have severe life threatening allergies?: No Does the patient have a fever or illness today?: No Has the patient ever had Guillain-Endicott Syndrome?: No Has the patient ever had any past reaction to a flu shot?: No Immunizations Fluarix Triv 8524-6528 (PF) 45 mcg (15 mcg x 3)/0.5 mL IM syringe Performing Provider: Miranda Marsh MD [facility] Administered by: YOMAIRA Hook on 05/04/24 16:23 Dose Route Admin Location Dispensed Lot Number Expiration Date [facility] Card Doffer 0.5 mL IM Left Deltoid 0.5 mL [id number] 10/18/24 [id number] [employer] VIS Given Date VIS Provided VIS Publication Date 05/04/24 Single Vaccine 20 Eligibility Eligibility Date Funding Source Not [facility] Eligible 05/04/24 Private Coding Level of Care Code Est Pt Level 3 (86339) Complex EM visit Add On G2211 Diagnoses Insomnia G47.00 Dyspepsia R10.13 Additional Codes JOSE-7 Assessment Billing - JOSE-7 Assessment Tool: JOSE-7 Assessment 25880 ([id number]) PHQ-9 - 95212 - PHQ-9 Billing: Yes ([id number]) Time Spent (min) 19 Assessment & Plan Assessment & Plan (1) Insomnia: Code(s): G47.00 - Insomnia, unspecified Category: Medical (2) Dyspepsia: Code(s): R10.13 - Epigastric pain Category: Medical Plan - Consider prescribing Ambien for insomnia, monitoring for potential somnambulism. - Transition from Trazodone to an alternative medication if dryness continues to affect quality of life. - Initiate omeprazole 3 times daily with meals to manage bloating and gas. - Schedule follow-up to assess the efficacy of current management and repeat cholesterol levels, previously noted as borderline elevated. Patient was informed and verbally consented to the use of an ambient scribe for clinic note documentation during this visit. I discussed with the patient the potential benefits of starting Ambien for her insomnia, highlighting that it has been effective for similar cases. I informed her of the possibility of somnambulism with such treatment, and we agreed on the importance of clarity on potential side effects. Regarding the gastrointestinal issues, I recommended omeprazole to address bloating and gas with instructions on taking it with meals. We discussed the need to monitor cholesterol levels, advising repeat testing to track progress. The patient may use secure messaging for prescription refills to ensure continuity of care. Orders: Orders Influenza [id number] Immunization Today Z23 - Encounter for immunization Comprehensive [place]. Panel Fast 6 Months R10.13 - Epigastric pain Lipid Panel 6 Months E78.5 - Hyperlipidemia, unspecified Vitamin D 25-OH Total 6 Months E55.9 - Vitamin D deficiency, unspecified Referrals Open Access Screening Colonoscopy Referral Z12.12 - Encounter for screening for malignant neoplasm of rectum Medications: New zolpidem 10 mg PO BEDTIME PRN 30 tabs 0RF sleep 30 days dicyclomine 20 mg PO TID 90 tabs 0RF 30 days Refilled hydrocortisone 2.5% 1 appl topical BID PRN 28 grams 1RF skin irritation 30 days Patient Instructions: - Follow the prescribed dosage of Ambien and report any unusual behaviors. - Begin taking omeprazole three times daily with meals as directed. - Monitor consistency in symptoms and report any significant changes. - Schedule and complete the recommended cholesterol level follow-up test. - Use the patient portal or other advised methods for medication refill requests.
== END 2024-05-04 16:28 | disposition home or self-care (01) ==
PROVIDERS: PCP Internal Medicine; Visit Provider Internal Medicine
DX: G47.00 Insomnia, unspecified (principal); R10.13 Epigastric pain; Z23 Encounter for immunization

== ENCOUNTER → 2024-05-04 15:10 | Outpatient (BNVA) | payer OTHER, SELFPAY | PROVIDERS: PCP Internal Medicine; Visit Provider Internal Medicine | DX: G47.00 Insomnia, unspecified (principal); R10.13 Epigastric pain; Z23 Encounter for immunization | CPT/HCPCS: 90471; 90656; 96127; 99212 ==

== ENCOUNTER 2024-09-12 14:15 | Emergency (ER) | payer OTHER, SELFPAY ==
--- NOTE | ~2024-09-12 | XR_ITS ---
CLINICAL HISTORY: pain 3 view left shoulder Comparison: DX/SR - XR SHOULDER LT MIN 2V - 10/28/2023 02:11 PM EDT Findings: No fractures or dislocations. Mild degenerative changes of the AC joint. No erosions. No radiopaque foreign body. IMPRESSION: 1. No acute findings This document has been electronically signed by: Jefferson Partida MD on 09/12/2024 18:39:41
--- NOTE | ~2024-09-12 | XR_ITS ---
CLINICAL HISTORY: right lower back pain 3 views lumbar spine Comparison: None Findings: Normal vertebral body alignment. Osteopenia. No acute fracture. Multilevel spondylosis with diffuse osteophytosis, facet arthropathy and degenerative disc disease. Intervertebral foraminal narrowing at L5-S1. IMPRESSION: Chronic changes without acute findings. This document has been electronically signed by: Jefferson Partida MD on 09/12/2024 18:37:05
[2024-09-12 14:22] VITALS: BP 169/92; PULSE 89; RESP 18; TEMP 37; O2SAT 99; BMI 25.7
--- NOTE | 2024-09-12 14:27 | ECG_ITS ---
Test Reason : CARDS Blood Pressure : */* mmHG Vent. Rate : 79 BPM Atrial Rate : 79 BPM P-R Int : 152 ms QRS Dur : 78 ms QT Int : 372 ms P-R-T Axes : 27 -21 25 degrees QTcB Int : 426 ms Normal sinus rhythm with sinus arrhythmia Minimal voltage criteria for LVH, may be normal variant ( R in aVL ) Cannot rule out Anterior infarct , age undetermined Abnormal ECG No previous ECGs available Referred By: Generic ED Physician Electronically Signed By: Valdemar Ferguson
[2024-09-12 15:28] LABS: MANUAL DIFF FLAG NO
[2024-09-12 15:29] LABS: Basophils Percent Auto 0.4 % (0-2); Eosinophils Absolute Auto 0.1 X10*3/uL (0.0-0.4); Hematocrit 35.1 % (37.0-47.0); Hemoglobin 11.8 g/dl (12.0-16.0); Imm Gran Abs Auto 0.01 X10*3/uL (0.00-0.03); Imm Gran Pct Auto 0.2 % (0.0-0.4); Lymphocytes Absolute Auto 2.1 X10*3/uL (1.2-4.9); Lymphocytes Percent Auto 42.3 % (20-40); Mean Corpuscular HGB Conc 33.6 g/dl (31.0-35.0); Mean Corpuscular Hemoglobin 31.1 pg (27.0-33.0); Mean Corpuscular Volume 92.6 fL (80.0-98.0); Monocytes Absolute Auto 0.4 X10*3/uL (0.1-1.2); Monocytes Percent Auto 7.9 % (2-11); Neutrophils Absolute Auto 2.4 x10*3/uL (2.0-8.3); Neutrophils Percent Auto 48.2 % (45-73); Platelet Count 318 X10*3/uL (160-400); Red Blood Count 3.79 X10*6/uL (4.20-5.50); Red Cell Distribution Width 11.5 % (11.0-16.0)
[2024-09-12 15:48] LABS: Alanine Aminotransferase 17 U/L (0-31); Albumin Level 4.6 g/dL (3.5-5.0); Anion Gap 14 (12-20); Aspartate Amino Transferase 21 U/L (5-31); Bilirubin Total 0.5 mg/dL (0.0-1.0); Blood Urea Nitrogen 7 mg/dL (9-16); Calcium 9.2 mg/dL (8.4-10.2); Carbon Dioxide 26 mmol/L (22-29); Chloride 103 mmol/L (96-108); Creatinine Clr Calc Pharmacy 85.7; Estimated Glomerular Filt Rate > 60; Glucose Random 94 mg/dL (60-115); Lipase 12 U/L (8-78); Potassium 4.3 mmol/L (3.3-5.1); Sodium 139 mmol/L (135-145); Total Protein 8.1 g/dL (6.5-8.0)
[2024-09-12 15:52] LABS: Troponin-I High Sensitivity < 2.7 ng/L (<3.5-17.0)
[2024-09-12 16:01] LABS: Alkaline Phosphatase 64 U/L (39-117)
[2024-09-12 17:08] VITALS: BP 147/85; PULSE 93; RESP 14; TEMP 36.2; O2SAT 98
--- NOTE | 2024-09-12 17:18 | PC.NURSE ---
Patient presents to ed c/o left shoulder which radiates all over her body. Pain started 3 days ago. Patient has hx of arthritis. Pain rated 5/10. Denies injury, +CMS, +ROM, VSS and up to date. Provider in with patient, plan of care on going
--- NOTE | 2024-09-12 18:30 | ED_ITS ---
HPI - General Adult General Chief complaint: General Medical Stated complaint: back pain Time Seen by Provider: 09/12/24 17:05 Source: patient, RN notes reviewed and old records reviewed Mode of arrival: ambulatory Limitations: no limitations History of Present Illness ED Provider: Coleen TORRES narrative: 59 year old female presents for evaluation of left shoulder pain and right lower back pain. Patient reports the pain started 3 days ago on both areas. Treated denies any specific injuries. She has a history of rheumatoid arthritis She is experiencing 610 achy pain worse with movement. She feels though her right lower back pain radiates down into the right leg above the knee. She is able to ambulate. Denies any fevers, chills. Denies any chest pain, shortness of breath palpitations Related Data Previous Rx's ?Medication ?Instructions ?Recorded dicyclomine 20 mg tablet 20 mg PO TID 30 days #90 tabs 05/04/24 zolpidem 10 mg tablet 10 mg PO BEDTIME PRN sleep 30 days 05/04/24 #30 tabs hydrocortisone 2.5 % topical cream 1 appl topical BID PRN skin 05/06/24 irritation 30 days #28 grams dexamethasone 4 mg tablet 4 mg PO DAILY #5 tabs 09/12/24 lidocaine HCl 3.88 % topical cream 1 appl topical BID PRN pain #85 09/12/24 grams Allergies Allergy/AdvReac Type Severity Reaction Status Date / Time mirtazapine AdvReac Intermediate inadequate Verified 09/12/24 14:27 response trazodone AdvReac Intermediate dry nose Verified 09/12/24 14:27 ENVIROMENTAL Allergy Intermediate ITCHY EYES Uncoded 05/04/24 16:12 Review of Systems 2 Constitutional: Constitutional: Denies body ache(s), Denies chills, Denies fever(s) and Denies headache(s) ENT: Denies vertigo, Denies dizziness, Denies headache(s) and Denies neck pain Cardiovascular: Cardiovascular: Denies chest pain, Denies chest pain at rest and Denies dyspnea Respiratory: Respiratory: Denies cough and Denies dyspnea Gastrointestinal: Gastrointestinal: Denies abdominal pain, Denies nausea and Denies vomiting Musculoskeletal: Musculoskeletal: Reports back pain, Denies deformity, Reports arthralgias, Reports joint swelling, Reports limited range of motion, Denies neck pain, Denies numbness, Reports radiating pain into limb, Denies stiffness and Denies tingling Integumentary/Breasts: Skin/Breast: Denies rash Neurologic: Denies vertigo, Denies dizziness, Denies headache(s), Denies numbness and Denies tingling Psychiatric: Psychiatric: Denies anxiety PMFSH Past Medical History Medical History Normocytic anemia Dyslipidemia Headache Recurrent tonsillitis Overweight Surgical History History of surgery History of tubal ligation History of breast surgery Family History Family History Father Lung cancer Smoker Mother Myocardial infarction Daughter No problems noted. Son No problems noted. 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 Cognitive needs: No Hearing needs: No Vision needs: Yes Physical Exam ED Vital Signs: Vital Signs - 24 hr 09/12/24 14:22 09/12/24 17:08 Temperature 98.6 F 97.2 F Pulse Rate 89 93 Respiratory Rate 18 14 Blood Pressure 169/92 H 147/85 H Pulse Oximetry 99 98 Oxygen Delivery Method Room Air Room Air BMI result Body Mass Index 25.7 Const General: healthy appearing, comfortable, no acute distress, alert and awake Nutritional Appearance: well nourished Orientation/consciousness: patient oriented x3 HENMT Head: Yes normocephalic and Yes atraumatic Eyes Eyelids: Yes eyelids normal Conjunctivae: conjunctivae normal Sclerae: sclerae normal Corneas: corneas normal Pupils: Equal, round and reactive pupils present EOM: EOMs intact bilaterally Neck Neck: Yes full ROM Resp Effort & Inspection: normal respiratory effort, able to speak in complete sentences, no audible wheezes and not labored Auscultation: clear to auscultation bilaterally GI Inspection: No distended Palpation (GI): Soft to palpation, not firm, nontender, no guarding and not rigid Back/Spine/Pelvis Other: There is right lumbar sacral tenderness without deformity. Positive straight leg raise on right. No calf tenderness, no right lower extremity edema Skin General skin exam: elasticity normal Neuro General: patient oriented x3 Cranial nerves: Yes Equal, round and reactive pupils present and Yes Bilaterally intact EOM present Cognition (Neuro): normal cognition Extrem Other: Tenderness to the left proximal humerus and left shoulder and the acromioclavicular joint. There was no clavicular tenderness or deformity. The patient has good range of motion of the left shoulder and left upper extremity. No overlying skin changes, ecchymosis, erythema or wounds to the left upper extremity. Medical Decision Making Medical Decision Making [facility] Narrative: [age] old female presents for evaluation of left shoulder and lower back pain. Her most consistent with musculoskeletal pain, possibly related to degenerative changes. She has no chest pain, no shortness of breath. She had labs ordered which did not show any concerning findings. She has a mild normocytic anemia consistent with a baseline going back 5 years. Chemistries without any concerning abnormalities, troponin is negative. Plan for x-rays of the left shoulder and lumbar spine. Differential Diagnosis Differential Diagnoses: The differential diagnosis associated with the presentation includes Arthritis Shoulder pain Sciatica Radiculopathy Bursitis Lab Data MDM Lab Attestation statement: I reviewed the patient's lab results. As above 09/12/24 15:23 09/12/24 15:24 Labs: Lab Results 09/12/24 09/12/24 Range/Units 15:23 15:24 WBC 5.0 (4.8-10.8) X10*3/uL RBC 3.79 L (4.20-5.50) X10*6/uL Hgb 11.8 L (12.0-16.0) g/dl Hct 35.1 L (37.0-47.0) % MCV 92.6 (80.0-98.0) fL MCH 31.1 (27.0-33.0) pg MCHC 33.6 (31.0-35.0) g/dl RDW 11.5 (11.0-16.0) % Plt Count 318 (160-400) X10*3/uL MPV 9.0 L (9.4-12.3) fL Immature Gran % (Auto) 0.2 (0.0-0.4) % Neut % (Auto) 48.2 (45-73) % Lymph % (Auto) 42.3 H (20-40) % Perry % (Auto) 7.9 (2-11) % Eos % (Auto) 1.0 (0-4) % Baso % (Auto) 0.4 (0-2) % Lymph # (Auto) 2.1 (1.2-4.9) X10*3/uL Perry # (Auto) 0.4 (0.1-1.2) X10*3/uL Eos # (Auto) 0.1 (0.0-0.4) X10*3/uL Baso # (Auto) 0.0 (0.0-0.2) X10*3/uL Abs Immat Gran (auto) 0.01 (0.00-0.03) X10*3/uL Absolute Neuts (auto) 2.4 (2.0-8.3) x10*3/uL Absolute Nucleated RBC 0.000 (0.0-0.012) X10*3/uL Nucleated RBC % (auto) 0.0 (0.0-0.2) /100WBC Sodium 139 (135-145) mmol/L Potassium 4.3 (3.3-5.1) mmol/L Chloride 103 (96-108) mmol/L Carbon Dioxide 26 (22-29) mmol/L Anion Gap 14 (12-20) BUN 7 L (9-16) mg/dL Creatinine 0.54 (0.5-1.4) mg/dL Estim Creat Clear Calc 85.7 Estimated GFR > 60 Random Glucose 94 (60-115) mg/dL Calcium 9.2 (8.4-10.2) mg/dL Total Bilirubin 0.5 (0.0-1.0) mg/dL AST 21 (5-31) U/L ALT 17 (0-31) U/L Alkaline Phosphatase 64 (39-117) U/L Troponin I High Sens < 2.7 (<3.5-17.0) ng/L Total Protein 8.1 H (6.5-8.0) g/dL Albumin 4.6 (3.5-5.0) g/dL Lipase 12 (8-78) U/L Radiology Impression Discussion of test interpretation with radiology: I have reviewed the radiologist's reading. Radiologist Impression: Findings: No fractures or dislocations. Mild degenerative changes of the AC joint. No erosions. No radiopaque foreign body. IMPRESSION: 1. No acute findings This document has been electronically signed by: Jefferson Partida MD on 09/12/2024 18:39:41 Findings: Normal vertebral body alignment. Osteopenia. No acute fracture. Multilevel spondylosis with diffuse osteophytosis, facet arthropathy and degenerative disc disease. Intervertebral foraminal narrowing at L5-S1. IMPRESSION: Chronic changes without acute findings. This document has been electronically signed by: Jefferson Partida MD on 09/12/2024 18:37:05 Discharge Plan Discharge Clinical Impression: Acute pain of left shoulder, Acute low back pain Patient Disposition: Home, Self-Care Instructions: Acute Low Back Pain (ED), Arthralgia (ED) Additional Instructions: Your x-rays show degenerative changes consistent with arthritis in both your spine and shoulder. You may continue Tylenol and ibuprofen as needed for pain. You may use dexamethasone twice daily for the next 3 days which should help with the pain going down her right leg You may also use lidocaine gel or patches for pain Follow-up with your primary doctor, return for new or worsening symptoms Prescriptions: New dexamethasone 4 mg tablet 4 mg PO DAILY Qty: 5 0RF lidocaine HCl 3.88 % cream 1 appl topical BID PRN (Reason: pain) Qty: 85 0RF No Action hydrocortisone 2.5 % cream 1 appl topical BID PRN (Reason: skin irritation) 30 Days Qty: 28 1RF zolpidem 10 mg tablet 10 mg PO BEDTIME PRN (Reason: sleep) 30 Days Qty: 30 0RF dicyclomine 20 mg tablet 20 mg PO TID 30 Days Qty: 90 0RF Print Language: Khmer
[2024-09-12 19:29] VITALS: BP 142/81; PULSE 84; RESP 16; TEMP 36.6; O2SAT 97
--- NOTE | 2024-09-12 19:48 | PC.NURSE ---
RN to bedside for dc and pt requested medication to help her sleep tonight since the pharmacy where the prescriptions were sent will be closed. RN discussed this RICHARD Horne and new orders to be obtained
[2024-09-12] MEDS: dexAMETHasone 4 MG TABLET PO (19:58)
[2024-09-12] MEDS: traMADoL HCL 50 MG TABLET PO (19:58)
[2024-09-12 20:03] VITALS: BP 142/81; PULSE 84; RESP 16; TEMP 36.6; O2SAT 97
== END 2024-09-12 20:11 | disposition home or self-care (01) ==
PROVIDERS: Nurse Practitioner Family; Emergency Provider Emergency Medicine; PCP Internal Medicine
DX: M54.50 Low back pain, unspecified (principal); M25.512 Pain in left shoulder; I49.9 Cardiac arrhythmia, unspecified; Z79.899 Other long term (current) drug therapy
CPT/HCPCS: 36415; 72100; 73030; 80053; 83690; 84484; 85025; 93005; 99283; 99285; J8540

== ENCOUNTER → 2024-09-12 14:27 | Outpatient (BNV) | payer OTHER, SELFPAY | PROVIDERS: Emergency Provider Emergency Medicine; PCP Internal Medicine; Visit Provider Internal Medicine Cardiovascular Disease | DX: I49.9 Cardiac arrhythmia, unspecified (principal) | CPT/HCPCS: 93010 ==

== ENCOUNTER → 2024-09-12 17:25 | Outpatient (BNV) | payer OTHER, SELFPAY | PROVIDERS: Emergency Provider Emergency Medicine; PCP Internal Medicine; Visit Provider Radiology Diagnostic Radiology | DX: M47.896 Other spondylosis, lumbar region (principal); M19.012 Primary osteoarthritis, left shoulder | CPT/HCPCS: 72100; 73030 ==